=== PATIENT | female | born 1990 | race African-American/Black ===

== ENCOUNTER 2016-10-13 10:04 | Emergency (ER) | payer SELFPAY ==
[2016-10-13 10:22] VITALS: BP 108/61
--- NOTE | 2016-10-13 10:25 | ER Document Report ---
ED Medical Screen (RME) - General Stated Complaint: POSSIBLE UTI Notes: onset: 3 days ago pyuria, urgency vaginal swelling decreased PO fluid intake I have greeted and performed a rapid initial assessment of this patient. A comprehensive ED assessment and evaluation of the patient, analysis of test results and completion of the medical decision making process will be conducted by additional ED providers. TRAVEL OUTSIDE OF THE [place] IN LAST 30 DAYS: No - Related Data Allergies/Adverse Reactions: hydromorphone HCl [From Dilaudid] Allergy (Intermediate, Verified 03/24/16 03:03 ) hives,itch,dry mouth Past Medical History - Past Medical History Cardiac Medical History: Denies: Hx Pulmonary Embolism, Hx Heart Murmur Comment Only: Hx Hypertension - low Pulmonary Medical History: Denies: Hx Asthma, Hx Sleep Apnea, Hx Tuberculosis Neurological Medical History: Denies: Hx Cerebrovascular Accident, Hx Seizures Endocrine Medical History: Denies: Hx Hyperthyroidism, Hx Hypothyroidism Renal/ Medical History: Reports: Hx Pelvic Inflammatory Disease. Denies: Hx Kidney Stones, Hx Ovarian Cysts Malignancy Medical History: Denies: Hx Breast Cancer, Hx Cervical Cancer, Hx Ovarian Cancer GI Medical History: Reports: Hx Gastroesophageal Reflux Disease - preg related. Denies: Hx Hiatal Hernia, Hx Ulcer Musculoskeltal Medical History: Denies Hx Fibromyalgia Psychiatric Medical History: Denies: Hx Bipolar Disorder, Hx Depression, Hx Post Traumatic Stress Disorder , Hx Schizophrenia Traumatic Medical History: Denies: Hx Fractures Infectious Medical History: Denies: Hx HIV Past Surgical History: Reports: Hx Section - x5. Denies: Hx Cholecystectomy, Hx Hysterectomy, Hx Pacemaker - Immunizations Immunizations up to date: Yes Hx Diphtheria, Pertussis, Tetanus Vaccination: Yes
[2016-10-13 11:27] LABS: APPEARANCE,URINE SLIGHTLY-CLOUDY; BILIRUBIN,URINE NEGATIVE (NEGATIVE); GLUCOSE, URINE NEGATIVE (NEGATIVE); KETONES,URINE TRACE mg/dL (NEGATIVE); LEUKOCYTE ESTERASE,URINE SMALL (NEGATIVE); NITRITE,URINE NEGATIVE (NEGATIVE); PROTEIN,URINE 30 mg/dL (NEGATIVE); URINE SPECIFIC GRAVITY 1.029; UROBILINOGEN,URINE NEGATIVE mg/dL (<2.0)
[2016-10-13] MEDS ORDERED: FLUCONAZOLE 100 MG TABLET PO ONE (11:50)
--- NOTE | 2016-10-13 11:52 | ER Document Report ---
ED General - General Chief Complaint: Urinary Problem Stated Complaint: POSSIBLE UTI Mode of Arrival: Ambulatory Information source: Patient Cannot obtain history due to: Unstable vital signs Notes: 26 yr old female presents with burning on urination, vaginal itching of 1 week duration deneis any fevers or chills, nausea or vomiting TRAVEL OUTSIDE OF THE [place]. IN LAST 30 DAYS: No - HPI Onset: Last week Onset/Duration: Sudden Quality of pain: Achy Severity: Mild Pain Level: 1 Associated symptoms: None Exacerbated by: Denies Relieved by: Denies Similar symptoms previously: No Recently seen / treated by doctor: No - Related Data Allergies/Adverse Reactions: hydromorphone HCl [From Dilaudid] Allergy (Intermediate, Verified 10/13/16 10:26 ) hives,itch,dry mouth Past Medical History - Social History Smoking Status: Never Smoker Cigarette use (# per day): No Chew tobacco use (# tins/day): No Smoking Education Provided: No Frequency of alcohol use: None Drug Abuse: None Family History: None. denies: Arthritis, CAD, COPD, CVA, DM, Hyperlipidemia, Hypertension, Malignancy, Thyroid Disfunction Patient has suicidal ideation: No Patient has homicidal ideation: No - Past Medical History Cardiac Medical History: Denies: Hx Pulmonary Embolism, Hx Heart Murmur Comment Only: Hx Hypertension - low Pulmonary Medical History: Denies: Hx Asthma, Hx Sleep Apnea, Hx Tuberculosis Neurological Medical History: Denies: Hx Cerebrovascular Accident, Hx Seizures Endocrine Medical History: Denies: Hx Hyperthyroidism, Hx Hypothyroidism Renal/ Medical History: Reports: Hx Pelvic Inflammatory Disease. Denies: Hx Kidney Stones, Hx Ovarian Cysts, Hx Peritoneal Dialysis Malignancy Medical History: Denies: Hx Breast Cancer, Hx Cervical Cancer, Hx Ovarian Cancer GI Medical History: Reports: Hx Gastroesophageal Reflux Disease - preg related. Denies: Hx Hiatal Hernia, Hx Ulcer Musculoskeltal Medical History: Denies Hx Fibromyalgia Psychiatric Medical History: Denies: Hx Bipolar Disorder, Hx Depression, Hx Post Traumatic Stress Disorder , Hx Schizophrenia Traumatic Medical History: Denies: Hx Fractures Infectious Medical History: Denies: Hx HIV Past Surgical History: Reports: Hx Section - x5. Denies: Hx Cholecystectomy, Hx Hysterectomy, Hx Pacemaker - Immunizations Immunizations up to date: Yes Hx Diphtheria, Pertussis, Tetanus Vaccination: Yes Review of Systems - Review of Systems Notes: REVIEW OF SYSTEMS: CONSTITUTIONAL : Denies fever, chills, or sweats. Denies recent illness. EENT: Denies eye, ear, throat, or mouth pain or symptoms. Denies nasal or sinus congestion or discharge. Denies throat, tongue, or mouth swelling or difficulty swallowing. CARDIOVASCULAR: Denies chest pain. Denies palpitations or racing or irregular heart beat. Denies ankle edema. RESPIRATORY: Denies cough, cold, or chest congestion. Denies shortness of breath, difficulty breathing, or wheezing. GASTROINTESTINAL: Admits to dysuria GENITOURINARY: Admits to dysuria FEMALE GENITOURINARY: Admits to vaginal itching MUSCULOSKELETAL: Denies back or neck pain or stiffness. Denies joint pain or swelling. SKIN: Denies rash, lesions or sores. HEMATOLOGIC : Denies easy bruising or bleeding. LYMPHATIC: Denies swollen, enlarged glands. NEUROLOGICAL: Denies confusion or altered mental status. Denies passing out or loss of consciousness. Denies dizziness or lightheadedness. Denies headache. Denies weakness or paralysis or loss of use of either side. Denies problems with gait or speech. Denies sensory loss, numbness, or tingling. Denies seizures. PSYCHIATRIC: Denies anxiety or stress. Denies depression, suicidal ideation, or homicidal ideation. ALL OTHER SYSTEMS REVIEWED AND NEGATIVE. Dictation was performed using [employer] voice recognition software PHYSICAL EXAMINATION: GENERAL: Well-appearing, well-nourished and in no acute distress. HEAD: Atraumatic, normocephalic. EYES: Pupils equal round and reactive to light, extraocular movements intact, conjunctiva are normal. ENT: Nares patent, oropharynx clear without exudates. Moist mucous membranes. NECK: Normal range of motion, supple without lymphadenopathy LUNGS: Breath sounds clear to auscultation bilaterally and equal. No wheezes rales or rhonchi. HEART: Regular rate and rhythm without murmurs ABDOMEN: Soft, abdomen no peritoneal sign no tenderness Female : External examination performed with nurse syndrome notes mild irritation consistent with candidiasis Musculoskeletal: Normal range of motion, no pitting or edema. No cyanosis. NEUROLOGICAL: Cranial nerves grossly intact. Normal speech, normal gait. Normal sensory, motor exams PSYCH: Normal mood, normal affect. SKIN: Warm, Dry, normal turgor, no rashes or lesions noted. Physical Exam - Vital signs Vitals: Pulse Resp BP Pulse Ox 77 16 108/61 97 10/13/16 10:21 10/13/16 10:21 10/13/16 10:21 10/13/16 10:21 Course - Re-evaluation Re-evalutation: 10/13/16 15:58 Urinalysis noted no sign of infection, I believe the patient is having irritation secondary to candidiasis, she is treated with Diflucan emergency department and is otherwise stable for discharge After performing a Medical Screening Examination, I estimate there is LOW risk for ACUTE APPENDICITIS, BOWEL OBSTRUCTION, ACUTE CHOLECYSTITIS, PERFORATED DIVERTICULITIS, INCARCERATED HERNIA, PANCREATITIS, PELVIC INFLAMMATORY DISEASE, PERFORATED ULCER, ECTOPIC , or TUBO-OVARIAN ABSCESS, thus I consider the discharge disposition reasonable. Also, there is no evidence or peritonitis , sepsis, or toxicity. The patient and I have discussed the diagnosis and risks , and we agree with discharging home with close follow-up with the understanding that symptoms and presentations can change. We also discussed returning to the Emergency Department immediately if new or worsening symptoms occur. We have discussed the symptoms which are most concerning (e.g., bloody stool, fever, changing or worsening pain, vomiting) that necessitate immediate return. 10/13/16 16:00 10/13/16 16:01 - Vital Signs Vital signs: Temp Pulse Resp BP Pulse Ox 77 16 108/61 97 10/13/16 10:21 10/13/16 10:21 10/13/16 10:21 10/13/16 10:21 - Laboratory Laboratory results interpreted by me: 10/13/16 10:52 Urine Protein 30 H Urine Ketones TRACE H Ur Leukocyte Esterase SMALL H Urine Ascorbic Acid 40 H Discharge - Discharge Clinical Impression: Ketonuria, Vaginal yeast infection Condition: Stable Disposition: HOME, SELF-CARE Additional Instructions: Vaginal Yeast Infection You have evidence of a yeast infection -- called "yocasta." A vaginal yeast infection often causes itching and discharge. While not dangerous, it can be very unpleasant. A yeast infection often follows the use of powerful antibiotics. It is more likely to occur in diabetics. The treatment now is usually a single pill of Diflucan, but also an antifungal cream or suppository may be used for a few days. You do not need to avoid sexual intercourse. Recurrences are common. You can make a recurrence less likely by wearing cotton underwear and avoiding tight clothing. For mild recurrences, you can try [id number] creams or suppositories that are made specifically for yeast. If the symptoms do not resolve, you should follow up for re-examination. Sometimes treatment of the sexual partner is necessary if infections are recurrent. Follow up with your physician tomorrow for further care or return to the ED IMMEDIATELY if symptoms worsen or new concerns occur
== END 2016-10-13 12:00 | disposition home or self-care (01) ==
LOC: ER 10:04
DX: R82.4 Acetonuria (principal); B37.3 Candidiasis of vulva and vagina; R30.0 Dysuria
CPT/HCPCS: 81001; 87086; 87088; 99283

== ENCOUNTER 2016-10-18 12:48 | Emergency (ER) | payer SELFPAY ==
[2016-10-18] MEDS ORDERED: OXYCODONE-ACETAMINOPHEN 5-325 MG TABLET PO ONE (12:54)
--- NOTE | 2016-10-18 12:55 | ER Document Report ---
ED Medical Screen (RME) - General Stated Complaint: POSSIBLE CYST Time seen by provider: 12:51 Mode of Arrival: Ambulatory Information source: Patient TRAVEL OUTSIDE OF THE [place] IN LAST 30 DAYS: No - HPI Patient complains to provider of: BARTOLIN CYST Onset: Other - 3 DAYS Onset/Duration: Sudden Context: HX OF SAME, DRAINED X 1 Quality of pain: Throbbing Severity: Severe Pain Level: 5 Associated Symptoms: None Exacerbated by: Sitting, Standing, Walking Relieved by: Denies Similar symptoms previously: Yes Recently seen / treated by doctor: No - Related Data Smoking: Non-smoker Frequency of alcohol use: None Drug Abuse: None Pertinent History: DENIES PMH Allergies/Adverse Reactions: hydromorphone HCl [From Dilaudid] Allergy (Intermediate, Verified 10/18/16 12:54 ) hives,itch,dry mouth Past Medical History - Past Medical History Cardiac Medical History: Denies: Hx Pulmonary Embolism, Hx Heart Murmur Comment Only: Hx Hypertension - low Pulmonary Medical History: Denies: Hx Asthma, Hx Sleep Apnea, Hx Tuberculosis Neurological Medical History: Denies: Hx Cerebrovascular Accident, Hx Seizures Endocrine Medical History: Denies: Hx Hyperthyroidism, Hx Hypothyroidism Renal/ Medical History: Reports: Hx Pelvic Inflammatory Disease. Denies: Hx Kidney Stones, Hx Ovarian Cysts, Hx Peritoneal Dialysis Malignancy Medical History: Denies: Hx Breast Cancer, Hx Cervical Cancer, Hx Ovarian Cancer GI Medical History: Reports: Hx Gastroesophageal Reflux Disease - preg related. Denies: Hx Hiatal Hernia, Hx Ulcer Musculoskeltal Medical History: Denies Hx Fibromyalgia Psychiatric Medical History: Denies: Hx Bipolar Disorder, Hx Depression, Hx Post Traumatic Stress Disorder , Hx Schizophrenia Traumatic Medical History: Denies: Hx Fractures Infectious Medical History: Denies: Hx HIV Past Surgical History: Reports: Hx Section - x5. Denies: Hx Cholecystectomy, Hx Hysterectomy, Hx Pacemaker - Immunizations Immunizations up to date: Yes Hx Diphtheria, Pertussis, Tetanus Vaccination: Yes
--- NOTE | 2016-10-18 14:59 | ER Document Report ---
ED General - General Chief Complaint: Abscess Stated Complaint: POSSIBLE CYST Mode of Arrival: Ambulatory Information source: Patient Cannot obtain history due to: Uncooperative Notes: Patient presents to the emergency department with complaints of Bartholin's cyst. Patient reports symptoms for the past 3 days. She reports she was evaluated here in the emergency department because she thought she had a urinary tract infection a few days ago. Treated for a yeast infection. Upon arrival home that day she noted she had an abscess. She squeezed the area and some pus came out. She also soaked in a hot tub. She reports pain with any movement. She denies f/v/d. She reports hx of bartholin cyst usually when she is . She has had a green catheter placed in the past. TRAVEL OUTSIDE OF THE [place] IN LAST 30 DAYS: No - HPI Onset: Other - 3 days Onset/Duration: Persistent Quality of pain: Achy Severity: Severe Pain Level: 5 Associated symptoms: None Exacerbated by: Supine, Sitting, Standing, Movement, Walking Relieved by: Denies Similar symptoms previously: No Recently seen / treated by doctor: Yes - Related Data Allergies/Adverse Reactions: hydromorphone HCl [From Dilaudid] Allergy (Intermediate, Verified 10/18/16 12:54 ) hives,itch,dry mouth Past Medical History - General Information source: Patient Last Menstrual Period: month ago - Social History Smoking Status: Current Every Day Smoker Cigarette use (# per day): Yes Chew tobacco use (# tins/day): No Frequency of alcohol use: None Drug Abuse: None Lives with: Family Family History: None. denies: Arthritis, CAD, COPD, CVA, DM, Hyperlipidemia, Hypertension, Malignancy, Thyroid Disfunction Patient has suicidal ideation: No Patient has homicidal ideation: No - Past Medical History Cardiac Medical History: Denies: Hx Pulmonary Embolism, Hx Heart Murmur Comment Only: Hx Hypertension - low Pulmonary Medical History: Denies: Hx Asthma, Hx Sleep Apnea, Hx Tuberculosis Neurological Medical History: Denies: Hx Cerebrovascular Accident, Hx Seizures Endocrine Medical History: Denies: Hx Hyperthyroidism, Hx Hypothyroidism Renal/ Medical History: Reports: Hx Pelvic Inflammatory Disease, Other - Bartholin's cyst. Denies: Hx Kidney Stones, Hx Ovarian Cysts, Hx Peritoneal Dialysis Malignancy Medical History: Denies: Hx Breast Cancer, Hx Cervical Cancer, Hx Ovarian Cancer GI Medical History: Reports: Hx Gastroesophageal Reflux Disease - preg related. Denies: Hx Hiatal Hernia, Hx Ulcer Musculoskeltal Medical History: Denies Hx Fibromyalgia Skin Medical History: Reports Other Psychiatric Medical History: Denies: Hx Bipolar Disorder, Hx Depression, Hx Post Traumatic Stress Disorder , Hx Schizophrenia Traumatic Medical History: Denies: Hx Fractures Infectious Medical History: Denies: Hx HIV Past Surgical History: Reports: Hx Section - x5. Denies: Hx Cholecystectomy, Hx Hysterectomy, Hx Pacemaker - Immunizations Immunizations up to date: Yes Hx Diphtheria, Pertussis, Tetanus Vaccination: Yes Review of Systems - Review of Systems Notes: -Review HPI for review of systems., All other systems negative Physical Exam - Vital signs Vitals: Pulse Resp BP Pulse Ox 87 18 105/61 100 10/18/16 15:10 10/18/16 15:10 10/18/16 15:10 10/18/16 15:10 - Notes Notes: PHYSICAL EXAMINATION: GENERAL: Patient is upset tearful nontoxic looking HEAD: Atraumatic, normocephalic. ENT: nares patent, . Moist mucous membranes. Speaks in clear voice NECK: Normal range of motion, supple LUNGS: CTAB and equal. No wheezes rales or rhonchi. HEART: Regular rate and rhythm without murmurs ABDOMEN: Soft, no tenderness. No guarding, no rebound EXTREMITIES: Normal range of motion NEUROLOGICAL: Cranial nerves grossly intact. Normal sensory/motor PSYCH: Normal mood, normal affect. SKIN: Warm, Dry, normal turgor, no rashes or lesions noted - Genitourinary External exam: Other - left labia swelling, no pustule, no erythema, no induration, very ttp vaginal canal with white discharge patient is being treated for yeast infection Female anatomy: 1 - swelling, soft, no pustule, no erytheam, ttp Course - Re-evaluation Re-evalutation: 10/18/16 15:06 Dr. Kole Cotto, consulted. He reports patient may follow-up in his office on Thursday either call for an appointment or walking. He also advises antibiotics Septra. Patient instructed on Septra and Percocet. Patient is worried that she cannot find her [employer] driver's license to obtain the prescriptions. Discussed options. Patient reports she may remember where her [employer] driver's license is, in her daughters diaper bag. Patient was also instructed on the importance of warm packs monitor the site return here if the area becomes larger, worsening pain concerns I have consulted the attending provider dr santana, per [facility] guidelines - Vital Signs Vital signs: Temp Pulse Resp BP Pulse Ox 87 18 105/61 100 10/18/16 15:10 10/18/16 15:10 10/18/16 15:10 10/18/16 15:10 Discharge - Discharge Clinical Impression: Left genital labial abscess Condition: Stable Disposition: HOME, SELF-CARE Instructions: Abscess ([facility]), Trimethoprim-Sulfa ([facility]), Oral Narcotic Medication ([facility]) Additional Instructions: *You have been treated for a labial abscess *Take medication as prescribed *Monitor the site for signs of increasing infection such as increasing pain, redness, swelling, warmth *Apply warm packs *Do not squeeze the area *Follow up with [facility] Thursday. Call or walk in. *Return to ED for signs of increasing infection, worsening condition, changes, needs Prescriptions: Oxycodone HCl/Acetaminophen [Percocet 5-325 mg Tablet] 1 - 2 tab PO ASDIR PRN # 15 tablet PRN Reason: Sulfamethoxazole/Trimethoprim [Bactrim Ds Tablet] 1 each PO BID #20 tablet Referrals: [facility] [Provider Group] - 10/20/16 ( Address: [address] [place] [address] , [place] [address] )
[2016-10-18 15:11] VITALS: BP 105/61
== END 2016-10-18 15:23 | disposition home or self-care (01) ==
LOC: ER 12:48
DX: N76.4 Abscess of vulva (principal); B37.9 Candidiasis, unspecified; F17.210 Nicotine dependence, cigarettes, uncomplicated; Z88.5 Allergy status to narcotic agent
CPT/HCPCS: 99282

== ENCOUNTER 2016-11-29 19:32 | Emergency (ER) | payer SELFPAY ==
--- NOTE | 2016-11-29 19:50 | ER Document Report ---
ED Medical Screen (RME) - General Stated Complaint: TOOTH PAIN Notes: Patient is a 26-year-old female who presents emergency Department complaining of tooth. Patient states that she recently had gone to [place] to have this tooth evaluated by [facility]. States she had Put on it. States she was eating food last night when it broke off. Admits to pain today. He felt drainage or odor. Fracture of back right top molar I have greeted and performed a rapid initial assessment of this patient. A comprehensive ED assessment and evaluation of the patient, analysis of test results and completion of the medical decision making process will be conducted by additional ED providers. TRAVEL OUTSIDE OF THE [place] IN LAST 30 DAYS: No - Related Data Allergies/Adverse Reactions: hydromorphone HCl [From Dilaudid] Allergy (Intermediate, Verified 10/18/16 12:54 ) hives,itch,dry mouth Past Medical History - Past Medical History Cardiac Medical History: Denies: Hx Pulmonary Embolism, Hx Heart Murmur Comment Only: Hx Hypertension - low Pulmonary Medical History: Denies: Hx Asthma, Hx Sleep Apnea, Hx Tuberculosis Neurological Medical History: Denies: Hx Cerebrovascular Accident, Hx Seizures Endocrine Medical History: Denies: Hx Hyperthyroidism, Hx Hypothyroidism Renal/ Medical History: Reports: Hx Pelvic Inflammatory Disease. Denies: Hx Kidney Stones, Hx Ovarian Cysts, Hx Peritoneal Dialysis Malignancy Medical History: Denies: Hx Breast Cancer, Hx Cervical Cancer, Hx Ovarian Cancer GI Medical History: Reports: Hx Gastroesophageal Reflux Disease - preg related. Denies: Hx Hiatal Hernia, Hx Ulcer Musculoskeltal Medical History: Denies Hx Fibromyalgia Psychiatric Medical History: Denies: Hx Bipolar Disorder, Hx Depression, Hx Post Traumatic Stress Disorder , Hx Schizophrenia Traumatic Medical History: Denies: Hx Fractures Infectious Medical History: Denies: Hx HIV Past Surgical History: Reports: Hx Section - x5. Denies: Hx Cholecystectomy, Hx Hysterectomy, Hx Pacemaker - Immunizations Immunizations up to date: Yes Hx Diphtheria, Pertussis, Tetanus Vaccination: Yes Physical Exam - Vital signs Vitals: Temp Pulse Resp BP Pulse Ox 98.7 F 70 20 97/62 L 98 11/29/16 19:40 11/29/16 19:40 11/29/16 19:40 11/29/16 19:40 11/29/16 19:40 Course - Vital Signs Vital signs: Temp Pulse Resp BP Pulse Ox 98.7 F 70 20 97/62 L 98 11/29/16 19:40 11/29/16 19:40 11/29/16 19:40 11/29/16 19:40 11/29/16 19:40
[2016-11-29] MEDS ORDERED: PENICILLIN V POTASSIUM 500 MG TABLET PO ONE (20:22)
[2016-11-29] MEDS ORDERED: OXYCODONE-ACETAMINOPHEN 5-325 MG TABLET PO ONE (20:22)
--- NOTE | 2016-11-29 20:30 | ER Document Report ---
HPI - HPI Patient complains to provider of: dental pain Onset: Yesterday Quality of pain: Achy Severity: Severe Pain Level: 5 Context: Patient presents to the emergency department with complaints of right upper molar dental pain that started yesterday after she was eating hard candy. Associated Symptoms: None Exacerbated by: Denies Relieved by: Denies Similar symptoms previously: Yes Recently seen / treated by doctor: No - CARDIOVASCULAR Cardiovascular: DENIES: Chest pain - REPRODUCTIVE Reproductive: DENIES: : - DERM Skin Color: Normal, [place] Past Medical History - General Information source: Patient Last Menstrual Period: 11/21/16 - Social History Smoking Status: Current Every Day Smoker Cigarette use (# per day): Yes Frequency of alcohol use: None Drug Abuse: None Lives with: Family Family History: None, Other - mom has bad teeth. denies: Arthritis, CAD, COPD, CVA, DM, Hyperlipidemia, Hypertension, Malignancy, Thyroid Disfunction Patient has suicidal ideation: No Patient has homicidal ideation: No - Past Medical History Cardiac Medical History: Denies: Hx Pulmonary Embolism, Hx Heart Murmur Comment Only: Hx Hypertension - low Pulmonary Medical History: Denies: Hx Asthma, Hx Sleep Apnea, Hx Tuberculosis Neurological Medical History: Denies: Hx Cerebrovascular Accident, Hx Seizures Endocrine Medical History: Denies: Hx Hyperthyroidism, Hx Hypothyroidism Renal/ Medical History: Reports: Hx Pelvic Inflammatory Disease. Denies: Hx Kidney Stones, Hx Ovarian Cysts, Hx Peritoneal Dialysis Malignancy Medical History: Denies: Hx Breast Cancer, Hx Cervical Cancer, Hx Ovarian Cancer GI Medical History: Reports: Hx Gastroesophageal Reflux Disease - preg related. Denies: Hx Hiatal Hernia, Hx Ulcer Musculoskeltal Medical History: Denies Hx Fibromyalgia Psychiatric Medical History: Denies: Hx Bipolar Disorder, Hx Depression, Hx Post Traumatic Stress Disorder , Hx Schizophrenia Traumatic Medical History: Denies: Hx Fractures Infectious Medical History: Denies: Hx HIV Past Surgical History: Reports: Hx Section - x5. Denies: Hx Cholecystectomy, Hx Hysterectomy, Hx Pacemaker - Immunizations Immunizations up to date: Yes Hx Diphtheria, Pertussis, Tetanus Vaccination: Yes Vertical Provider Document - CONSTITUTIONAL Agree With Documented VS: Yes Exam Limitations: No Limitations General Appearance: WD/WN, No Apparent Distress - INFECTION CONTROL TRAVEL OUTSIDE OF THE [place] IN LAST 30 DAYS: No - HEENT HEENT: Atraumatic, Normocephalic. negative: Pharyngeal Erythema, Tympanic Membrane Red Mouth Diagram: 1 - Complains of pain no obvious signs of infection, no erythema swelling pustule or discharge, opens mouth wide, clear voice - NECK Neck: Normal Inspection, Supple. negative: Lymphadenopathy-Left, Lymphadenopathy-Right - RESPIRATORY Respiratory: Breath Sounds Normal, No Respiratory Distress O2 Sat by Pulse Oximetry: 99 - CARDIOVASCULAR Cardiovascular: Regular Rate - MUSCULOSKELETAL/EXTREMETIES Musculoskeletal/Extremeties: MAEW, FROM - NEURO Level of Consciousness: Awake, Alert, Appropriate Motor/Sensory: No Motor Deficit - DERM Integumentary: Warm, Dry Course - Re-evaluation Re-evalutation: 11/29/16 20:30 Instructed on the importance of follow-up with dentist. She reports she is following up with a dentist in [place] because it's cheaper there. - Vital Signs Vital signs: Temp Pulse Resp BP Pulse Ox 98.7 F 69 20 97/52 L 99 11/29/16 19:48 11/29/16 19:48 11/29/16 19:48 11/29/16 19:48 11/29/16 19:48 Discharge - Discharge Clinical Impression: Pain, dental Condition: Stable Disposition: HOME, SELF-CARE Instructions: Penicillin V K ([facility]), Toothache ([facility]) Additional Instructions: *You have been evaluated for dental pain *Take medications as prescribed *Take ibuprofen or tylenol for pain *Follow up with dentist next week *Return to ED for worsening condition, changes, needs Prescriptions: Penicillin V Potassium [Penicillin Vk 500 mg Tablet] 500 mg PO BID #20 tablet
[2016-11-29 20:46] VITALS: BP 103/65
== END 2016-11-29 20:46 | disposition home or self-care (01) ==
LOC: ER 19:32
DX: K08.9 Disorder of teeth and supporting structures, unspecified (principal); F17.210 Nicotine dependence, cigarettes, uncomplicated
CPT/HCPCS: 99282

== ENCOUNTER 2016-12-16 17:04 | Emergency (ER) | payer SELFPAY ==
[2016-12-16] MEDS ORDERED: NORMAL SALINE 1000 ML 1,000 ML IV ONE (18:10)
[2016-12-16] MEDS ORDERED: ACETAMINOPHEN 325 MG TABLET PO ONE (18:11)
[2016-12-16] MEDS ORDERED: ONDANSETRON 4 MG TAB.RAPDIS PO ONE (18:11)
--- NOTE | 2016-12-16 18:11 | ER Document Report ---
ED Medical Screen (RME) - General Mode of Arrival: Ambulatory Information source: Patient TRAVEL OUTSIDE OF THE [place] IN LAST 30 DAYS: No - HPI Patient complains to provider of: Lower abdominal pain Associated Symptoms: Other - see notes above <HERMINIO COLVIN - Last Filed: 12/16/16 18:19> <BARBIE ROPER - Last Filed: 12/16/16 19:34> - General Chief Complaint: Dizziness Stated Complaint: DIZZINESS Notes: 26 year old female with no prior medical problems presents to the ED complaining of lower abdominal pain, chills, headache, and feeling like she is going to "pass out." Patient denies vaginal discharge, dysuria, cough, congestion, diarrhea, or shortness of breath. Patient explains that every time she gets up she feels "disorientated" and feels like she is going to "pass out. "Julian zelaya (HERMINIO COLVIN) - Related Data Allergies/Adverse Reactions: hydromorphone HCl [From Dilaudid] Allergy (Intermediate, Verified 12/16/16 17:22 ) hives,itch,dry mouth Home Medications: Current Home Medications No Home Medications 12/16/16 [History] Past Medical History - General Information source: Patient - Past Medical History Cardiac Medical History: Comment Only: Hx Hypertension - low Pulmonary Medical History: Renal/ Medical History: Reports: Hx Pelvic Inflammatory Disease GI Medical History: Reports: Hx Gastroesophageal Reflux Disease - preg related Musculoskeltal Medical History: Infectious Medical History: Denies: Hx HIV Past Surgical History: Reports: Hx Section - x5 - Immunizations Immunizations up to date: Yes Hx Diphtheria, Pertussis, Tetanus Vaccination: Yes <HERMINIO COLVIN - Last Filed: 12/16/16 18:19> Review of Systems - Review of Systems Constitutional: See HPI, Chills EENT: No symptoms reported. denies: Nose congestion Cardiovascular: No symptoms reported Respiratory: No symptoms reported. denies: Cough, Short of breath Gastrointestinal: See HPI, Abdominal pain - lower Genitourinary: No symptoms reported. denies: Dysuria, Discharge Female Genitourinary: No symptoms reported. denies: Vaginal discharge Musculoskeletal: No symptoms reported Skin: No symptoms reported Hematologic/Lymphatic: No symptoms reported Neurological/Psychological: See HPI, Headaches -: Yes All other systems reviewed and negative <HERMINIO OCLVIN - Last Filed: 12/16/16 18:19> Physical Exam - Vital signs Interpretation: Tachycardic - General General appearance: Alert In distress: None - Respiratory Respiratory status: No respiratory distress - Abdominal Inspection: Normal Distension: No distension Tenderness: Tender - suprapubic tenderness to palpation <HERMINIO COLVIN - Last Filed: 12/16/16 18:19> <BARBIE ROPER - Last Filed: 12/16/16 19:34> - Vital signs Vitals: Temp Pulse Resp BP Pulse Ox 99.1 F 120 H 16 105/61 98 12/16/16 17:24 12/16/16 17:24 12/16/16 17:24 12/16/16 17:24 12/16/16 17:24 Course <HERMINIO COLVIN - Last Filed: 12/16/16 18:19> - Laboratory Result Diagrams: 12/16/16 18:20 12/16/16 18:20 <BARBIE ROPER - Last Filed: 12/16/16 19:34> - Re-evaluation Re-evalutation: 12/16/16 19:34 I personally performed the services described in the documentation, reviewed and edited the documentation which was dictated to the scribe in my presence, and it accurately records my words and actions. (BARBIE ROPER) - Vital Signs Vital signs: Temp Pulse Resp BP Pulse Ox 99.1 F 120 H 16 105/61 98 12/16/16 17:24 12/16/16 17:24 12/16/16 17:24 12/16/16 17:24 12/16/16 17:24 - Laboratory Laboratory results interpreted by me: 12/16/16 12/16/16 18:20 18:20 RDW 14.6 H Seg Neuts % (Manual) 88 H Lymphocytes % (Manual) 7 L Urine Urobilinogen 4.0 H Urine Ascorbic Acid 40 H Scribe Documentation - Scribe Written by Scribe:: Josh Loja, 12/16/2016 1837 acting as scribe for :: Baudilio <HERMINIO COLVIN - Last Filed: 12/16/16 18:19>
[2016-12-16 18:53] LABS: APPEARANCE,URINE CLEAR; BILIRUBIN,URINE NEGATIVE (NEGATIVE); GLUCOSE, URINE NEGATIVE (NEGATIVE); KETONES,URINE NEGATIVE (NEGATIVE); LEUKOCYTE ESTERASE,URINE NEGATIVE (NEGATIVE); NITRITE,URINE NEGATIVE (NEGATIVE); PROTEIN,URINE NEGATIVE (NEGATIVE); URINE SPECIFIC GRAVITY 1.028
[2016-12-16 18:54] LABS: HEMATOCRIT 40.1 % (36.0-47.0); HEMOGLOBIN 13.1 g/dL (12.0-15.5); HGB HCT DIFFERENCE -0.8; MEAN CORPUSCULAR HEMOGLOBIN 28.2 pg (27.0-33.4); MEAN CORPUSCULAR HGB CONC 32.8 g/dL (32.0-36.0); MEAN CORPUSCULAR VOLUME 86 fl (80-97); RED BLOOD COUNT 4.67 10^6/uL (3.72-5.28); RED CELL DISTRIBUTION WIDTH 14.6 % (11.5-14.0); WHITE BLOOD COUNT 8.1 10^3/uL (4.0-10.5)
[2016-12-16 19:08] LABS: ALANINE AMINOTRANSFERASE 47 U/L (9-52); ALBUMIN 4.2 g/dL (3.5-5.0); ALKALINE PHOSPHATASE 81 U/L (38-126); ANION GAP 15 (5-19); ASPARTATE AMINO TRANSFERASE 27 U/L (14-36); BILIRUBIN,DIRECT 0.3 mg/dL (0.0-0.4); BILIRUBIN,TOTAL 0.6 mg/dL (0.2-1.3); BLOOD UREA NITROGEN 12 mg/dL (7-20); CALCIUM 9.1 mg/dL (8.4-10.2); CARBON DIOXIDE 23 mmol/L (22-30); CHLORIDE 102 mmol/L (98-107); CREATININE RESULT 0.79 mg/dL (0.52-1.25); GLUCOSE 102 mg/dL (75-110); LIPASE 79.7 U/L (23-300); POTASSIUM 4.2 mmol/L (3.6-5.0); SODIUM 139.5 mmol/L (137-145); TOTAL PROTEIN 7.9 g/dL (6.3-8.2)
[2016-12-16 19:15] LABS: BASOPHILS % (MANUAL) 0 % (0-2); EOSINOPHILS % (MANUAL) 1 % (0-6); LYMPHOCYTES % (MANUAL) 7 % (13-45); TOTAL CELLS COUNTED 100
[2016-12-16 19:16] LABS: RBC MORPHOLOGY COMMENT NORMO-CYTIC/CHROMIC
--- NOTE | 2016-12-16 22:03 | ER Document Report ---
ED Dizziness/Weakness - General Chief Complaint: Dizziness Stated Complaint: DIZZINESS Mode of Arrival: Ambulatory Information source: Patient Notes: This is a 26-year-old previously healthy female who presents for evaluation of dizziness when she stands. She states that she initially felt well upon awakening this morning but at about 11:00 she started feeling dizzy every time she stood up. She also had mild nausea but no vomiting. No abdominal pain. No fevers. No dysuria. TRAVEL OUTSIDE OF THE [place] IN LAST 30 DAYS: No - Related Data Allergies/Adverse Reactions: hydromorphone HCl [From Dilaudid] Allergy (Intermediate, Verified 12/16/16 17:22 ) hives,itch,dry mouth Home Medications: Current Home Medications No Home Medications 12/16/16 [History] Past Medical History - General Information source: Patient - Social History Smoking Status: Unknown if Ever Smoked Family History: None, Other - mom has bad teeth. denies: Arthritis, CAD, COPD, CVA, DM, Hyperlipidemia, Hypertension, Malignancy, Thyroid Disfunction Patient has suicidal ideation: No Patient has homicidal ideation: No - Past Medical History Cardiac Medical History: Denies: Hx Pulmonary Embolism, Hx Heart Murmur Comment Only: Hx Hypertension - low Pulmonary Medical History: Denies: Hx Asthma, Hx Sleep Apnea, Hx Tuberculosis Neurological Medical History: Denies: Hx Cerebrovascular Accident, Hx Seizures Endocrine Medical History: Denies: Hx Hyperthyroidism, Hx Hypothyroidism Renal/ Medical History: Reports: Hx Pelvic Inflammatory Disease. Denies: Hx Kidney Stones, Hx Ovarian Cysts, Hx Peritoneal Dialysis Malignancy Medical History: Denies: Hx Breast Cancer, Hx Cervical Cancer, Hx Ovarian Cancer GI Medical History: Reports: Hx Gastroesophageal Reflux Disease - preg related. Denies: Hx Hiatal Hernia, Hx Ulcer Musculoskeltal Medical History: Denies Hx Fibromyalgia Psychiatric Medical History: Denies: Hx Bipolar Disorder, Hx Depression, Hx Post Traumatic Stress Disorder , Hx Schizophrenia Traumatic Medical History: Denies: Hx Fractures Infectious Medical History: Denies: Hx HIV Past Surgical History: Reports: Hx Section - x5. Denies: Hx Cholecystectomy, Hx Hysterectomy, Hx Pacemaker - Immunizations Immunizations up to date: Yes Hx Diphtheria, Pertussis, Tetanus Vaccination: Yes Physical Exam - Vital signs Vitals: Temp Pulse Resp BP Pulse Ox 99.1 F 120 H 16 105/61 98 12/16/16 17:24 12/16/16 17:24 12/16/16 17:24 12/16/16 17:24 12/16/16 17:24 Course - Re-evaluation Re-evalutation: 12/16/16 22:00 Patient has decided that she cannot stay and wait for her IV fluids and orthostatic vital signs and she is demanding to leave now. We discussed risks of dehydration and clinical worsening and she leaves prior to the completion of her evaluation but she voices understanding of this and she signed an AMA form. - Vital Signs Vital signs: Temp Pulse Resp BP Pulse Ox 98.3 F 99 16 113/63 97 12/16/16 21:58 12/16/16 21:58 12/16/16 21:58 12/16/16 21:58 12/16/16 21:58 - Laboratory Result Diagrams: 12/16/16 18:20 12/16/16 18:20 Laboratory results interpreted by me: 12/16/16 12/16/16 18:20 18:20 RDW 14.6 H Seg Neuts % (Manual) 88 H Lymphocytes % (Manual) 7 L Urine Urobilinogen 4.0 H Urine Ascorbic Acid 40 H Discharge - Discharge Clinical Impression: Near syncope Disposition: AGAINST MEDICAL ADVICE
[2016-12-16 22:14] VITALS: BP 113/63
== END 2016-12-16 22:15 | disposition left against medical advice (07) ==
LOC: ER 17:04
DX: R42 Dizziness and giddiness (principal); R11.0 Nausea
CPT/HCPCS: 99284; 36415; 82962; 83690; 84703; 85025; 80053; 81001; S0119

== ENCOUNTER 2017-02-22 15:33 | Emergency (ER) | payer SELFPAY ==
--- NOTE | 2017-02-22 15:41 | ER Document Report ---
HPI - HPI Patient complains to provider of: toothache Onset: Other - several days Quality of pain: Achy, Throbbing Pain Level: 5 Context: 26 yo female complaining of left lower third molar pain which radiates into her left ear. NO fever or chills. Associated Symptoms: None Exacerbated by: Other - chewing Relieved by: Denies Similar symptoms previously: No Recently seen / treated by doctor: No - ROS ROS below otherwise negative: Yes Systems Reviewed and Negative: Yes All other systems reviewed and negative - REPRODUCTIVE Reproductive: DENIES: : - DERM Skin Color: Normal Past Medical History - General Information source: Patient - Social History Smoking Status: Unknown if Ever Smoked Frequency of alcohol use: None Drug Abuse: None Lives with: Family Family History: None, Other - mom has bad teeth Patient has suicidal ideation: No Patient has homicidal ideation: No - Past Medical History Cardiac Medical History: Comment Only: Hx Hypertension - low Pulmonary Medical History: Other: 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 IN LAST 30 DAYS: No - RESPIRATORY O2 Sat by Pulse Oximetry: 100 Course - Vital Signs Vital signs: Temp Pulse Resp BP Pulse Ox 98.6 F 93 17 111/63 100 02/22/17 15:35 02/22/17 15:35 02/22/17 15:35 02/22/17 15:35 02/22/17 15:35 Discharge - Discharge Clinical Impression: Pericoronitis Condition: Good Disposition: HOME, SELF-CARE Instructions: Penicillin V K ([facility]), Toothache ([facility]), Anti-Inflammatory Medication ([facility]), Dentist Additional Instructions: use waterpik or electric toothbrush to clean under the gingiva that is covering portion of the wisdom teeth to prevent further infection antibacterial mouthwash see the dentist as soon as possible to er if worse Please complete the patient satisfaction survey if you get one, and return it.. If you do not receive a survey, then you can go to the [facility] website, [email or web address] and place your comments about your very good care. Thank you very much. It was a pleasure being your medical provider today. Prescriptions: Ibuprofen [Motrin 800 mg Tablet] 800 mg PO Q8HP PRN #30 tablet PRN Reason: Penicillin V Potassium [Penicillin Vk 500 mg Tablet] 500 mg PO QID #40 tablet
[2017-02-22] MEDS ORDERED: BENZONATATE 100 MG CAPSULE PO ONE (15:51)
[2017-02-22] MEDS ORDERED: IBUPROFEN 800 MG TABLET PO ONE (15:52)
[2017-02-22] MEDS ORDERED: PENICILLIN V POTASSIUM 500 MG TABLET PO ONE (15:52)
[2017-02-22 16:13] VITALS: BP 118/68
== END 2017-02-22 16:13 | disposition home or self-care (01) ==
LOC: ER 15:33
DX: K05.30 Chronic periodontitis, unspecified (principal); K08.89 Other specified disorders of teeth and supporting structures; H92.02 Otalgia, left ear
CPT/HCPCS: 99282

== ENCOUNTER 2017-06-05 04:33 | Emergency (ER) | payer SELFPAY ==
[2017-06-05 04:50] VITALS: BP 102/54
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
[2017-06-05] MEDS ORDERED: ONDANSETRON HCL INJ/PF 4 MG/2 ML SDV ONE (05:44)
[2017-06-05] MEDS ORDERED: FAMOTIDINE INJ/PF 20 MG/2 ML SDV IV ONE (05:44)
== END 2017-06-05 05:35 | disposition home or self-care (01) ==
LOC: ER 04:33
DX: H92.02 Otalgia, left ear (principal); Y04.2XXA Assault by strike against or bumped into by another person, initial encounter; Z88.5 Allergy status to narcotic agent
CPT/HCPCS: 99282

== ENCOUNTER 2017-10-20 18:27 | Emergency (ER) | payer MEDICAID ==
--- NOTE | 2017-10-20 18:58 | ER Document Report ---
ED Medical Screen (RME) - General Chief Complaint: Abdominal Pain Stated Complaint: STOMACH PAIN Time Seen by Provider: 10/20/17 18:56 Mode of Arrival: Ambulatory Information source: Patient TRAVEL OUTSIDE OF THE [place] IN LAST 30 DAYS: No - HPI Patient complains to provider of: abd pain Onset: This morning - pt with generalized abd pain with nausea starting ealrier today - Related Data Allergies/Adverse Reactions: hydromorphone HCl [From Dilaudid] Allergy (Intermediate, Verified 10/20/17 18:27 ) hives,itch,dry mouth Past Medical History - Social History Chew tobacco use (# tins/day): No Frequency of alcohol use: None Drug Abuse: None - Past Medical History Cardiac Medical History: Denies: Hx Pulmonary Embolism, Hx Heart Murmur Comment Only: Hx Hypertension - low Pulmonary Medical History: Denies: Hx Asthma, Hx Sleep Apnea, Hx Tuberculosis Neurological Medical History: Denies: Hx Cerebrovascular Accident, Hx Seizures Endocrine Medical History: Denies: Hx Hyperthyroidism, Hx Hypothyroidism Renal/ Medical History: Reports: Hx Pelvic Inflammatory Disease. Denies: Hx Kidney Stones, Hx Ovarian Cysts, Hx Peritoneal Dialysis Malignancy Medical History: Denies: Hx Breast Cancer, Hx Cervical Cancer, Hx Ovarian Cancer GI Medical History: Reports: Hx Gastroesophageal Reflux Disease - preg related. Denies: Hx Hiatal Hernia, Hx Ulcer Musculoskeltal Medical History: Denies Hx Fibromyalgia Psychiatric Medical History: Denies: Hx Bipolar Disorder, Hx Depression, Hx Post Traumatic Stress Disorder , Hx Schizophrenia Traumatic Medical History: Denies: Hx Fractures Infectious Medical History: Denies: Hx HIV Past Surgical History: Reports: Hx Section - x5. Denies: Hx Cholecystectomy, Hx Hysterectomy, Hx Pacemaker - Immunizations Immunizations up to date: Yes Hx Diphtheria, Pertussis, Tetanus Vaccination: Yes Physical Exam - Vital signs Vitals: Temp Pulse Resp BP Pulse Ox 98.5 F 81 16 107/57 L 98 10/20/17 18:30 10/20/17 18:30 10/20/17 18:30 10/20/17 18:30 10/20/17 18:30 Course - Vital Signs Vital signs: Temp Pulse Resp BP Pulse Ox 98.5 F 81 16 107/57 L 98 10/20/17 18:30 10/20/17 18:30 10/20/17 18:30 10/20/17 18:30 10/20/17 18:30
[2017-10-20 19:31] LABS: ABSOLUTE EOSINOPHILS # (AUTO) 0.1 10^3/uL (0.0-0.6); ABSOLUTE LYMPHOCYTES (AUTO) 1.1 10^3/uL (0.5-4.7); ABSOLUTE MONOCYTES (AUTO) 0.3 10^3/uL (0.1-1.4); ABSOLUTE NEUT (AUTO) 3.3 10^3/uL (1.7-8.2); BASOPHILS % (AUTO) 0.6 % (0-2); EOSINOPHILS % (AUTO) 1.2 % (0-6); HEMATOCRIT 38.5 % (36.0-47.0); HEMOGLOBIN 13.1 g/dL (12.0-15.5); LYMPHOCYTES % (AUTO) 23.6 % (13-45); MEAN CORPUSCULAR HEMOGLOBIN 29.5 pg (27.0-33.4); MEAN CORPUSCULAR HGB CONC 34.1 g/dL (32.0-36.0); MEAN CORPUSCULAR VOLUME 87 fl (80-97); MONOCYTES % (AUTO) 7.1 % (3-13); PLATELET COUNT 208 10^3/uL (150-450); RED BLOOD COUNT 4.44 10^6/uL (3.72-5.28); RED CELL DISTRIBUTION WIDTH 14.5 % (11.5-14.0); SEGMENTED NEUTROPHILS % (AUTO) 67.5 % (42-78); TOTAL CELLS COUNTED % (AUTO) 100 %; WHITE BLOOD COUNT 4.9 10^3/uL (4.0-10.5)
[2017-10-20 19:35] LABS: APPEARANCE,URINE SLIGHTLY-CLOUDY; BILIRUBIN,URINE NEGATIVE (NEGATIVE); COLOR,URINE YELLOW; GLUCOSE, URINE NEGATIVE (NEGATIVE); KETONES,URINE NEGATIVE (NEGATIVE); LEUKOCYTE ESTERASE,URINE NEGATIVE (NEGATIVE); NITRITE,URINE NEGATIVE (NEGATIVE); PROTEIN,URINE NEGATIVE (NEGATIVE); URINE SPECIFIC GRAVITY 1.027
--- NOTE | 2017-10-20 19:37 | RADIOLOGY REPORT (SQ) ---
EXAM DESCRIPTION: ACUTE ABDOMEN SERIES COMPLETED DATE/TIME: 10/20/2017 7:29 pm REASON FOR STUDY: abd pain COMPARISON: None. NUMBER OF VIEWS: Three views. TECHNIQUE: Frontal chest, supine abdomen and upright/decubitus abdomen radiographic images acquired. LIMITATIONS: None. FINDINGS: CHEST: Lungs clear of infiltrates. FREE AIR: None. No abnormal gas collections. BOWEL GAS PATTERN: Nonobstructive pattern. No dilated loops or air fluid levels. CALCIFICATIONS: No suspicious calcifications. HARDWARE: BTL clips. SOFT TISSUES: No gross mass or suggestion of organomegaly. BONES: No acute fracture. No worrisome bone lesions. OTHER: No other significant finding. IMPRESSION: NO RADIOGRAPHIC EVIDENCE FOR ACUTE ABDOMINAL DISEASE. TECHNICAL DOCUMENTATION: JOB ID: [id number] [employer]- All Rights Reserved
[2017-10-20 19:46] LABS: ALANINE AMINOTRANSFERASE 39 U/L (9-52); ALBUMIN 4.3 g/dL (3.5-5.0); ALKALINE PHOSPHATASE 73 U/L (38-126); ANION GAP 12 (5-19); ASPARTATE AMINO TRANSFERASE 23 U/L (14-36); BILIRUBIN,DIRECT 0.3 mg/dL (0.0-0.4); BILIRUBIN,TOTAL 0.3 mg/dL (0.2-1.3); BLOOD UREA NITROGEN 11 mg/dL (7-20); CALCIUM 9.7 mg/dL (8.4-10.2); CARBON DIOXIDE 25 mmol/L (22-30); CHLORIDE 104 mmol/L (98-107); GLUCOSE 92 mg/dL (75-110); LIPASE 127.6 U/L (23-300); POTASSIUM 3.9 mmol/L (3.6-5.0); TOTAL PROTEIN 8.2 g/dL (6.3-8.2)
[2017-10-20] MEDS ORDERED: MAG HYDROX/AL HYDROX/SIMETH SUSP 30 ML UDCUP PO ONE (20:36)
[2017-10-20] MEDS ORDERED: ONDANSETRON 4 MG TAB.RAPDIS PO ONE (20:36)
--- NOTE | 2017-10-20 20:42 | ER Document Report ---
ED General - General Chief Complaint: Abdominal Pain Stated Complaint: STOMACH PAIN Time Seen by Provider: 10/20/17 18:56 Mode of Arrival: Ambulatory Notes: 19-year-old female with no abdominal history presents with crampy peribuccal pain off and on worse when eating associated with acid and belching. She also has diarrhea. No fever or chills but positive dizziness. Decreased oral intake. Symptoms are moderate in intensity. She has no foreign travel or recent antibiotic use. No urinary or vaginal symptoms. TRAVEL OUTSIDE OF THE [place] IN LAST 30 DAYS: No - Related Data Allergies/Adverse Reactions: hydromorphone HCl [From Dilaudid] Allergy (Intermediate, Verified 10/20/17 18:27 ) hives,itch,dry mouth Past Medical History - General Information source: Patient - Social History Smoking Status: Current Some Day Smoker Chew tobacco use (# tins/day): No Frequency of alcohol use: None Drug Abuse: None Family History: None, Other - mom has bad teeth Patient has suicidal ideation: No Patient has homicidal ideation: No - Past Medical History Cardiac Medical History: Denies: Hx Pulmonary Embolism, Hx Heart Murmur Comment Only: Hx Hypertension - low Pulmonary Medical History: Denies: Hx Asthma, Hx Sleep Apnea, Hx Tuberculosis Neurological Medical History: Denies: Hx Cerebrovascular Accident, Hx Seizures Endocrine Medical History: Denies: Hx Hyperthyroidism, Hx Hypothyroidism Renal/ Medical History: Reports: Hx Pelvic Inflammatory Disease. Denies: Hx Kidney Stones, Hx Ovarian Cysts, Hx Peritoneal Dialysis Malignancy Medical History: Denies: Hx Breast Cancer, Hx Cervical Cancer, Hx Ovarian Cancer GI Medical History: Reports: Hx Gastroesophageal Reflux Disease - preg related. Denies: Hx Hiatal Hernia, Hx Ulcer Musculoskeltal Medical History: Denies Hx Fibromyalgia Psychiatric Medical History: Denies: Hx Bipolar Disorder, Hx Depression, Hx Post Traumatic Stress Disorder , Hx Schizophrenia Traumatic Medical History: Denies: Hx Fractures Infectious Medical History: Denies: Hx HIV Past Surgical History: Reports: Hx Section - x5. Denies: Hx Cholecystectomy, Hx Hysterectomy, Hx Pacemaker - Immunizations Immunizations up to date: Yes Hx Diphtheria, Pertussis, Tetanus Vaccination: Yes Review of Systems - Review of Systems Notes: REVIEW OF SYSTEMS GEN: Denies fever, chills, weight loss ENT: Denies sore throat, nasal discharge, ear pain EYES: Denies blurry vision, eye pain, discharge CV: Denies chest pain, palpitations, edema RESP: Denies cough, shortness of breath, wheezing GI: HPI MSK: Denies joint pain/swelling, edema, SKIN: Denies rash, skin lesions LYMPH: Denies swollen glands/lymph nodes NEURO: Denies headache, focal weakness or numbness, dizziness PSYCH: Denies depression, suicidal or homicidal ideation PHYSICAL EXAMINATION General: No acute distress, well-nourished Head: Atraumatic, normocephalic ENT: Mouth normal, oropharynx moist, no exudates or tonsillar enlargement Eyes: Conjunctiva normal, pupils equal, lids normal Neck: No JVD, supple, no guarding CVS: Normal rate, regular rhythm, no murmurs Resp: No resp distress, equal and normal breath sounds bilaterally GI: Nondistended, soft, no tenderness to palpation, no rebound or guarding Ext: No deformities, no edema, normal range of motion in upper and lower ext Back: No CVA or midline TTP Skin: No rash, warm Lymphatic: No lymphadeopathy noted Neuro: Awake, alert. Face symmetric. GCS 15. Physical Exam - Vital signs Vitals: Temp Pulse Resp BP Pulse Ox 98.5 F 81 16 107/57 L 98 10/20/17 18:30 10/20/17 18:30 10/20/17 18:30 10/20/17 18:30 10/20/17 18:30 Course - Re-evaluation Re-evalutation: 10/20/17 20:41 Belching abdominal crampy pain and diarrhea likely gastroenteritis or gastritis. No tenderness no fever, labs sent at triage are all normal. Will do Zofran and Maalox. Will discharge with Motrin and Zofran. Stable for discharge home. I have discussed with the patient there likely diagnosis, aftercare plan, follow -up plans and my usual and customary return precautions. They verbalized understanding of this. - Vital Signs Vital signs: Temp Pulse Resp BP Pulse Ox 98.5 F 81 16 107/57 L 98 10/20/17 18:30 10/20/17 18:30 10/20/17 18:30 10/20/17 18:30 10/20/17 18:30 - Laboratory Result Diagrams: 10/20/17 19:05 10/20/17 19:05 Laboratory results interpreted by me: 10/20/17 10/20/17 19:05 19:05 RDW 14.5 H Urine Urobilinogen 2.0 H Urine Ascorbic Acid 40 H Discharge - Discharge Clinical Impression: Vomiting and diarrhea Condition: Good Disposition: HOME, SELF-CARE Instructions: Abdominal Pain ([facility]), Antispasmodics ([facility]) Prescriptions: Dicyclomine HCl [Bentyl 10 mg Capsule] 1 cap PO TID #30 cap Ondansetron HCl [Zofran 4 mg Tablet] 1 - 2 tab PO Q4H PRN #10 tablet PRN Reason: Forms: Return to Work
[2017-10-20 21:29] VITALS: BP 106/76
== END 2017-10-20 21:32 | disposition home or self-care (01) ==
LOC: ER 18:27
DX: R11.10 Vomiting, unspecified (principal); R19.7 Diarrhea, unspecified; R14.2 Eructation; R10.33 Periumbilical pain; R42 Dizziness and giddiness; F17.200 Nicotine dependence, unspecified, uncomplicated; Z88.5 Allergy status to narcotic agent
CPT/HCPCS: 99284; 36415; 83690; 85025; 81025; 80053; 81001; 74022; S0119; J3490

== ENCOUNTER 2018-01-13 20:36 | Emergency (ER) | payer MEDICAID ==
[2018-01-13 21:04] VITALS: BP 104/62
== END 2018-01-13 23:55 | disposition left against medical advice (07) ==
LOC: ER 20:36
DX: Z53.21 Procedure and treatment not carried out due to patient leaving prior to being seen by health care provider (principal)

== ENCOUNTER 2019-03-10 14:49 | Emergency (ER) | payer MEDICAID ==
[2019-03-10] MEDS ORDERED: NORMAL SALINE 1000 ML 1,000 ML IV ONE ×2 (15:49→18:54)
[2019-03-10] MEDS ORDERED: ONDANSETRON HCL INJ/PF 4 MG/2 ML SDV IV ONE (15:49)
--- NOTE | 2019-03-10 15:50 | ER Document Report ---
ED Medical Screen (RME) - General Chief Complaint: Abdominal Pain Stated Complaint: DIARRHEA Time Seen by Provider: 03/10/19 15:48 Mode of Arrival: Ambulatory Information source: Patient Notes: 28-year-old female presented to ED for generalized abdominal pain nausea vomiting and diarrhea with foul-smelling burps that started this morning. She states no one else in the family is sick. She states she is very nauseated and feels dizzy. Patient is alert oriented respirations regular and unlabored speaking in full sentences. Patient states she does smoke 2 to 3 cigarettes a day drinks 1 or 2 drinks a day does not use recreational drugs. She states her last menstrual period started on the and lasted for 3 days. I have greeted and performed a rapid initial assessment of this patient. A comprehensive ED assessment and evaluation of the patient, analysis of test results and completion of medical decision making process will be conducted by an additional ED providers. Dictation of this chart was performed using voice recognition software; therefore, there may be some unintended grammatical errors. TRAVEL OUTSIDE OF THE [place] IN LAST 30 DAYS: No - Related Data Allergies/Adverse Reactions: hydromorphone HCl [From Dilaudid] Allergy (Intermediate, Verified 03/10/19 15:20) hives,itch,dry mouth Past Medical History - Past Medical History Cardiac Medical History: Denies: Hx Pulmonary Embolism, Hx Heart Murmur Comment Only: Hx Hypertension - low Pulmonary Medical History: Denies: Hx Asthma, Hx Sleep Apnea, Hx Tuberculosis Neurological Medical History: Denies: Hx Cerebrovascular Accident, Hx Seizures Endocrine Medical History: Denies: Hx Hyperthyroidism, Hx Hypothyroidism Renal/ Medical History: Reports: Hx Pelvic Inflammatory Disease. Denies: Hx Kidney Stones, Hx Ovarian Cysts, Hx Peritoneal Dialysis Malignancy Medical History: Denies: Hx Breast Cancer, Hx Cervical Cancer, Hx Ovarian Cancer GI Medical History: Reports: Hx Gastroesophageal Reflux Disease - preg related. Denies: Hx Hiatal Hernia, Hx Ulcer Musculoskeltal Medical History: Denies Hx Fibromyalgia Psychiatric Medical History: Denies: Hx Bipolar Disorder, Hx Depression, Hx Post Traumatic Stress Disorder, Hx Schizophrenia Traumatic Medical History: Denies: Hx Fractures Infectious Medical History: Denies: Hx HIV Past Surgical History: Reports: Hx Section - x5. Denies: Hx Cholecystectomy, Hx Hysterectomy, Hx Pacemaker - Immunizations Immunizations up to date: Yes Hx Diphtheria, Pertussis, Tetanus Vaccination: Yes Physical Exam - Vital signs Vitals: Temp Pulse Resp BP Pulse Ox 99.6 F 18 L 18 105/56 L 97 03/10/19 15:19 03/10/19 15:19 03/10/19 15:19 03/10/19 15:19 03/10/19 15:19 Course - Vital Signs Vital signs: Temp Pulse Resp BP Pulse Ox 99.6 F 18 L 18 105/56 L 97 03/10/19 15:19 03/10/19 15:19 03/10/19 15:19 03/10/19 15:19 03/10/19 15:19
[2019-03-10 16:30] LABS: ABSOLUTE EOSINOPHILS # (AUTO) 0.1 10^3/uL (0.0-0.6); ABSOLUTE LYMPHOCYTES (AUTO) 0.4 10^3/uL (0.5-4.7); ABSOLUTE MONOCYTES (AUTO) 0.2 10^3/uL (0.1-1.4); ABSOLUTE NEUT (AUTO) 6.1 10^3/uL (1.7-8.2); BASOPHILS % (AUTO) 0.5 % (0-2); EOSINOPHILS % (AUTO) 0.9 % (0-6); HEMATOCRIT 39.2 % (36.0-47.0); HEMOGLOBIN 12.9 g/dL (12.0-15.5); LYMPHOCYTES % (AUTO) 6.2 % (13-45); MEAN CORPUSCULAR HEMOGLOBIN 27.8 pg (27.0-33.4); MEAN CORPUSCULAR HGB CONC 32.8 g/dL (32.0-36.0); MEAN CORPUSCULAR VOLUME 85 fl (80-97); PLATELET COUNT 260 10^3/uL (150-450); RED BLOOD COUNT 4.64 10^6/uL (3.72-5.28); RED CELL DISTRIBUTION WIDTH 15.6 % (11.5-14.0); SEGMENTED NEUTROPHILS % (AUTO) 89.4 % (42-78); TOTAL CELLS COUNTED % (AUTO) 100 %; WHITE BLOOD COUNT 6.9 10^3/uL (4.0-10.5)
[2019-03-10 16:33] LABS: APPEARANCE,URINE SLIGHTLY-CLOUDY; BILIRUBIN,URINE NEGATIVE (NEGATIVE); COLOR,URINE YELLOW; GLUCOSE, URINE NEGATIVE (NEGATIVE); KETONES,URINE NEGATIVE (NEGATIVE); LEUKOCYTE ESTERASE,URINE NEGATIVE (NEGATIVE); NITRITE,URINE POSITIVE (NEGATIVE); PROTEIN,URINE NEGATIVE (NEGATIVE); URINE SPECIFIC GRAVITY 1.029
[2019-03-10 16:41] LABS: ALANINE AMINOTRANSFERASE 17 U/L (9-52); ALBUMIN 4.4 g/dL (3.5-5.0); ALKALINE PHOSPHATASE 77 U/L (38-126); ANION GAP 10 (5-19); ASPARTATE AMINO TRANSFERASE 24 U/L (14-36); BILIRUBIN,DIRECT 0.2 mg/dL (0.0-0.4); BILIRUBIN,TOTAL 0.6 mg/dL (0.2-1.3); BLOOD UREA NITROGEN 15 mg/dL (7-20); CARBON DIOXIDE 24 mmol/L (22-30); CHLORIDE 105 mmol/L (98-107); GLUCOSE 98 mg/dL (75-110); POTASSIUM 3.8 mmol/L (3.6-5.0); SODIUM 139.1 mmol/L (137-145); TOTAL PROTEIN 8.7 g/dL (6.3-8.2)
[2019-03-10] MEDS ORDERED: DICYCLOMINE HCL INJ 20 MG/2 ML AMPULE IM ONE (18:46)
[2019-03-10] MEDS ORDERED: CEFTRIAXONE 1 GM/D5W RTU 1 GM/50 ML RTUPB IV ONE (18:47)
--- NOTE | 2019-03-10 20:26 | ER Document Report ---
ED GI/ - General Chief Complaint: Abdominal Pain Stated Complaint: DIARRHEA Time Seen by Provider: 03/10/19 15:48 Mode of Arrival: Ambulatory Information source: Patient TRAVEL OUTSIDE OF THE [place] IN LAST 30 DAYS: No - HPI Patient complains to provider of: Abdominal pain, Diarrhea, Vomiting. No: Vaginal discharge, Vaginal pain Onset: This morning Timing/Duration: Gradual Quality of pain: Achy, Cramping Severity at maximum: Moderate Severity in ED: Moderate Location: Suprapubic Vaginal bleeding (Compared to normal period): None Sexual history: Active Associated symptoms: None Exacerbated by: Denies Relieved by: Denies Notes: 03/10/19 20:24 28-year-old female with lower abdominal pain with nausea vomiting and diarrhea. Copious diarrhea. Feels weak and dizzy at times. Hurts to move hurts when she coughs. No vaginal discharge no vaginal bleeding. No pelvic pain no [employer] DIES symptoms. No ill contacts. No chest pain no cough no upper respiratory symptoms. No blood in the urine no blood in the stool - Related Data Allergies/Adverse Reactions: hydromorphone HCl [From Dilaudid] Allergy (Intermediate, Verified 03/10/19 15:20) hives,itch,dry mouth Past Medical History - General Information source: Patient - Social History Smoking Status: Current Every Day Smoker Chew tobacco use (# tins/day): No Frequency of alcohol use: Heavy Drug Abuse: None Family History: None, Other - mom has bad teeth Patient has suicidal ideation: No Patient has homicidal ideation: No - Past Medical History Cardiac Medical History: Denies: Hx Pulmonary Embolism, Hx Heart Murmur Comment Only: Hx Hypertension - low Pulmonary Medical History: Denies: Hx Asthma, Hx Sleep Apnea, Hx Tuberculosis Neurological Medical History: Denies: Hx Cerebrovascular Accident, Hx Seizures Endocrine Medical History: Denies: Hx Hyperthyroidism, Hx Hypothyroidism Renal/ Medical History: Reports: Hx Pelvic Inflammatory Disease. Denies: Hx Kidney Stones, Hx Ovarian Cysts, Hx Peritoneal Dialysis Malignancy Medical History: Denies: Hx Breast Cancer, Hx Cervical Cancer, Hx Ovarian Cancer GI Medical History: Reports: Hx Gastroesophageal Reflux Disease - preg related. Denies: Hx Hiatal Hernia, Hx Ulcer Musculoskeletal Medical History: Denies Hx Fibromyalgia Psychiatric Medical History: Denies: Hx Bipolar Disorder, Hx Depression, Hx Post Traumatic Stress Disorder, Hx Schizophrenia Traumatic Medical History: Denies: Hx Fractures Infectious Medical History: Denies: Hx HIV Past Surgical History: Reports: Hx Section - x5. Denies: Hx Cholecyste ctomy, Hx Hysterectomy, Hx Pacemaker - Immunizations Immunizations up to date: Yes Hx Diphtheria, Pertussis, Tetanus Vaccination: Yes Review of Systems - Review of Systems Constitutional: Chills EENT: No symptoms reported Cardiovascular: No symptoms reported Respiratory: No symptoms reported Gastrointestinal: Diarrhea, Nausea, Vomiting Genitourinary: No symptoms reported Female Genitourinary: No symptoms reported Musculoskeletal: No symptoms reported Physical Exam - Vital signs Vitals: Temp Pulse Resp BP Pulse Ox 99.6 F 18 L 18 105/56 L 97 03/10/19 15:19 03/10/19 15:19 03/10/19 15:03/10/19 15:03/10/19 15:19 - Notes Notes: PHYSICAL EXAMINATION: GENERAL: Well-appearing, well-nourished and in no acute distress. HEAD: Atraumatic, normocephalic. EYES: Pupils equal round and reactive to light, extraocular movements intact, sclera anicteric, conjunctiva are normal. ENT: nares patent, oropharynx clear without exudates. Moist mucous membranes. NECK: Normal range of motion, supple without lymphadenopathy LUNGS: Breath sounds clear to auscultation bilaterally and equal. No wheezes rales or rhonchi. HEART: Regular rate and rhythm without murmurs ABDOMEN: Soft, lower abdominal tenderness suprapubic right lower quadrant. Mild no rebound no guarding normoactive bowel sounds. No guarding, no rebound. No masses appreciated. EXTREMITIES: Normal range of motion, no pitting or edema. No cyanosis. NEUROLOGICAL: No focal neurological deficits. Moves all extremities spontaneously and on command. PSYCH: Normal mood, normal affect. SKIN: Warm, Dry, normal turgor, no rashes or lesions noted. Course - Re-evaluation Re-evalutation: 03/10/19 22:10 CT is reported as negative. I have discussed with patient results and plan. We will treat her for UTI and gastroenteritis. Discharged home in stable condition. - Vital Signs Vital signs: Temp Pulse Resp BP Pulse Ox 99.6 F 18 L 18 105/56 L 97 03/10/19 15:19 03/10/19 15:19 03/10/19 15:19 03/10/19 15:19 03/10/19 15:19 - Laboratory Result Diagrams: 03/10/19 16:08 03/10/19 16:08 Laboratory results interpreted by me: 03/10/19 03/10/19 03/10/19 16:08 16:08 16:08 RDW 15.6 H Seg Neutrophils % 89.4 H Lymphocytes % 6.2 L Absolute Lymphocytes 0.4 L Total Protein 8.7 H Urine Nitrite POSITIVE H Urine Urobilinogen 4.0 H - Diagnostic Test Radiology reviewed: Reports reviewed Discharge - Discharge Clinical Impression: Acute gastroenteritis, Abdominal pain Condition: Stable Disposition: HOME, SELF-CARE Instructions: Gastroenteritis (adult) ([facility]) Prescriptions: Dicyclomine HCl [Bentyl 20 mg Tablet] 20 mg PO QID #20 tablet Nitrofurantoin/Nitrofuran Mac [Macrobid 100 mg Capsule] 1 tab PO BID #20 capsule Ondansetron [Zofran Odt 4 mg Tablet] 1 - 2 tab PO Q4H PRN #15 tab.rapdis PRN Reason: For Nausea/Vomiting
--- NOTE | 2019-03-10 22:04 | RADIOLOGY REPORT (SQ) ---
EXAM DESCRIPTION: CT ABDOMEN PELVIS WITH IV CONTRAST COMPLETED DATE/TME: 03/10/2019 00:00 CLINICAL HISTORY: 28 years, Female, pain vomiting COMPARISON: None. TECHNIQUE: [id number] Images stored on PACS. All CT scanners at this facility use dose modulation, iterative reconstruction, and/or weight based dosing when appropriate to reduce radiation dose to as low as reasonably achievable (ALARA). [facility]: Dose Right [facility]: CareDose [facility]: Dose Right [facility]: Teradose 4D [facility]: [email or web address] LIMITATIONS: None. FINDINGS: Limited evaluation of the lung bases is unremarkable. Osseous structures are grossly intact. The visualized liver, spleen, adrenal glands, pancreas, kidneys are unremarkable. No evidence for bowel obstruction. Normal appendix. No free air or free fluid. Tubal ligation clips are noted. IMPRESSION: No acute intra-abdominal/pelvic process TECHNICAL DOCUMENTATION: Quality ID # [id number]: Final reports with documentation of one or more dose reduction techniques (e.g., Automated exposure control, adjustment of the mA and/or kV according to patient size, use of iterative reconstruction technique) copyright 2011 [employer]- All Rights Reserved
[2019-03-10 22:29] VITALS: BP 110/66
== END 2019-03-10 22:25 | disposition home or self-care (01) ==
LOC: ER 14:49
DX: K52.9 Noninfective gastroenteritis and colitis, unspecified (principal); R10.30 Lower abdominal pain, unspecified; R11.2 Nausea with vomiting, unspecified
CPT/HCPCS: 99284; 96372; 96361; 96375; 96365; 36415; 84703; 85025; 80053; 81001; 74177; J0500; J2405; J7030; J0696

== ENCOUNTER 2019-10-27 08:35 | Emergency (ER) | payer MEDICAID ==
[2019-10-27 08:40] VITALS: BP 116/66
== END 2019-10-27 09:30 | disposition left against medical advice (07) ==
LOC: ER 08:35
DX: Z53.21 Procedure and treatment not carried out due to patient leaving prior to being seen by health care provider (principal)

== ENCOUNTER 2019-10-27 10:37 | Emergency (ER) | payer MEDICAID ==
--- NOTE | 2019-10-27 12:02 | ER Document Report ---
HPI - HPI Time Seen by Provider: 10/27/19 11:17 Pain Level: 3 Context: Patient is a 29-year-old female who presents emergency department with a chief complaint of right breast mass. Patient reports that she has had a right inverted nipple for 1 year. Patient reports this morning she did notice a movable, painful breast lump behind the nipple. Patient reports she did also notice some clear drainage coming out of the nipple. Patient denies fever. Patient has redness around the breast. - REPRODUCTIVE Reproductive: DENIES: : Past Medical History - General Information source: Patient - Social History Smoking Status: Current Every Day Smoker Frequency of alcohol use: None Drug Abuse: None Lives with: Family Family History: None, Other - mom has bad teeth Patient has suicidal ideation: No Patient has homicidal ideation: No - Past Medical History Cardiac Medical History: Reports: None Denies: Hx Pulmonary Embolism, Hx Heart Murmur Comment Only: Hx Hypertension - low Pulmonary Medical History: Reports: None Denies: Hx Asthma, Hx Sleep Apnea, Hx Tuberculosis EENT Medical History: Reports: None Neurological Medical History: Reports: None. Denies: Hx Cerebrovascular Accident, Hx Seizures Endocrine Medical History: Reports: None. Denies: Hx Hyperthyroidism, Hx Hypothyroidism Renal/ Medical History: Reports: Hx Pelvic Inflammatory Disease. Denies: Hx Kidney Stones, Hx Ovarian Cysts, Hx Peritoneal Dialysis Malignancy Medical History: Reports: None. Denies: Hx Breast Cancer, Hx Cervical Cancer, Hx Ovarian Cancer GI Medical History: Reports: Hx Gastroesophageal Reflux Disease - preg related. Denies: Hx Hiatal Hernia, Hx Ulcer Musculoskeletal Medical History: Reports None, Denies Hx Fibromyalgia Skin Medical History: Reports None Psychiatric Medical History: Reports: None Denies: Hx Bipolar Disorder, Hx Depression, Hx Post Traumatic Stress Disorder , Hx Schizophrenia Traumatic Medical History: Reports: None. Denies: Hx Fractures Infectious Medical History: Reports: None. Denies: Hx HIV Past Surgical History: Reports: Hx Section - x5. Denies: Hx Cholecystectomy, Hx Hysterectomy, Hx Pacemaker - Immunizations Immunizations up to date: Yes Hx Diphtheria, Pertussis, Tetanus Vaccination: Yes Vertical Provider Document - CONSTITUTIONAL Agree With Documented VS: Yes Exam Limitations: No Limitations General Appearance: No Apparent Distress - INFECTION CONTROL TRAVEL OUTSIDE OF THE [place] IN LAST 30 DAYS: No - HEENT HEENT: Atraumatic, Normal ENT Exam, Normocephalic, PERRLA - NECK Neck: Normal Inspection - RESPIRATORY Respiratory: Breath Sounds Normal, No Respiratory Distress - CARDIOVASCULAR Cardiovascular: Regular Rate, Regular Rhythm - GI/ABDOMEN Gastrointestinal: Abdomen Soft, Abdomen Non-Tender, Normal Bowel Sounds - MUSCULOSKELETAL/EXTREMETIES Musculoskeletal/Extremeties: FROM - NEURO Level of Consciousness: Awake, Alert, Appropriate - DERM Integumentary: Warm, Dry, No Rash Course - Re-evaluation Re-evalutation: I did perform a breast exam in a private room with the triage nurse. Patient does have a right inverted nipple. There is no erythema noted to the breast. There does appear to be a palpable, movable tender lump that is located behind the nipple. No fluctuance. My suspicion for abscess at this time is extremely low. 10/27/19 12:00 I did speak with ultrasound who reports that they do not have a radiologist who specializes in breast masses and lumps that the patient needs to follow-up with [facility]. 12:02 Did speak with [facility] to find out the patient's options. Patient reports she thinks she has Medicaid but is unsure. They report that if she does not have medicaid she can be in contact with [facility] through the hospital as they will help assist her in pain for the ultrasound and mammogram. Hebert pulido the patient does need to establish primary care so they can write the order for an outpatient ultrasound and mammogram as they will receive the results. I did explain this to the patient, will give her multiple referrals. She once again states she is not sure if she has Medicaid or not we will need to find out. I did inform her to investigate this further and if she does not have Medicaid to call the hospital to seek help in establishing [facility]. I did reiterate the importance of doing this as she does need to have this followed up. 10/27/19 13:15 I did speak with Jeanne Ruiz CNM with [facility] who states that patient can call the office to schedule an appointment for further evaluation of her right breast lump so she can have close follow up. I also contacted registration who states patient does not have medicaid. I did speak with patient in detail that her lump/inverted nipple/nipple discharge needs close follow up as I cannot rule out cancer and this could be cancer. At time of discharge registration had paperwork filled out in regards to [facility] but patient refused to sign the paperwork at time of discharge per registration staff. Patient was provided with multiple referrals. - Vital Signs Vital signs: Temp Pulse Resp BP Pulse Ox 99.5 F 95 18 123/72 98 10/27/19 10:43 10/27/19 10:43 10/27/19 10:43 10/27/19 10:43 10/27/19 10:43 Discharge - Discharge Clinical Impression: Breast pain, right, Lump of right breast Condition: Stable Disposition: HOME, SELF-CARE Additional Instructions: Today you are seen in the emergency department for breast lump and nipple discharge. We do not perform mammograms or breast ultrasounds routinely here in the emergency department. First you do need to find out if you have Medicaid. If you do not have Medicaid you can contact the [facility] main number at [phone] and ask them about [facility]. [facility] does help patients pay for outpatient testing that they cannot afford if they do not have insurance. I did speak with [facility]. They do report you need a primary care physician and that there are multiple resources here in the area. I will refer you to [facility] as well as [facility]. [facility] does take Medicaid. Ultimately this does need to be further investigated. When you establish care with a doctor they can order the mammogram and ultrasound as a we will give the results and follow-up. *Please return the emergency department if symptoms worsen or change such as copious amounts of nipple discharge, fever, redness to the breast or any new or worsening symptoms. [facility] [address] [place] [phone] Breast Lumps There is a lump in your breast. We realize this will worry you. Most breast masses are not cancer. Most breast masses are fibrocystic disease, simple cysts, or fibroadenoma, which are benign. The first step is usually a mammogram or ultrasound of the breast. Your private physician, or a surgeon, can complete the evaluation. Be sure to keep your follow-up appointment. If the lump is malignant, early removal is your best chance of a cure. Referrals: [facility] [Provider Group] - Follow up as needed [facility] [Provider Group] - Follow up as needed [facility] [Provider Group] - Follow up as needed
[2019-10-27 13:34] VITALS: BP 101/64
== END 2019-10-27 13:34 | disposition home or self-care (01) ==
LOC: ER 10:37
DX: N63.0 Unspecified lump in unspecified breast (principal); N64.4 Mastodynia; N64.59 Other signs and symptoms in breast; N64.52 Nipple discharge; F17.200 Nicotine dependence, unspecified, uncomplicated